=== PATIENT | female | born 1990 | race Two or more races ===

== ENCOUNTER 2025-07-28 11:17 | Emergency (ER) | payer BC, OTHER ==
[~2025-07-28] VITALS: Ht 162.6 cm; Wt 86.2 kg
[2025-07-28 11:29] VITALS: TEMP 98.1
[2025-07-28] MEDS: IV NS 0.9% 1,000 ML BAG IV ONE (11:30)
[2025-07-28] MEDS ORDERED: FAMOTIDINE/PF INJ 20 MG/2 ML VIAL IV ONE (11:42)
[2025-07-28] MEDS ORDERED: MAG HYDROX/AL HYDROX/SIMETH 30 ML UDC ONE (11:42)
[2025-07-28] MEDS ORDERED: LIDOCAINE VISCOUS 2% UD 15 ML UDC ONE (11:42)
[2025-07-28] MEDS ORDERED: ONDANSETRON HCL/PF 4 MG/2 ML VIAL ONE (11:42)
[2025-07-28] MEDS: ONDANSETRON HCL/PF 4 MG/2 ML VIAL IVP ONE (11:45)
[2025-07-28] MEDS: FAMOTIDINE/PF INJ 20 MG/2 ML VIAL IV ONE (11:45)
[2025-07-28] MEDS: LIDOCAINE VISCOUS 2% UD 15 ML UDC MM ONE (11:45)
[2025-07-28] MEDS: MAG HYDROX/AL HYDROX/SIMETH 30 ML UDC PO ONE (11:45)
[2025-07-28 12:05] LABS: PLATELET COUNT (AUTO) 245 K/uL (150-450); RED BLOOD CELL COUNT(AUTO) 4.68 MIL/uL (4.0-5.2); RED CELL DISTRIBUTION WIDTH 14.7 % (11.5-15.0); WHITE BLOOD COUNT (AUTO) 4.8 K/uL (4.3-11.0)
[2025-07-28 12:16] LABS: CALCIUM, SERUM 8.6 mg/dL (8.5-10.1); CREATININE 0.6 mg/dL (0.6-1.3); SODIUM SERUM 144.0 mmol/L (136-145); UREA NITROGEN, BLOOD 13.0 mg/dL (7-18)
[2025-07-28 12:30] LABS: ASPARTATE AMINOTRANSFERASE 39.0 U/L (15-37); TOTAL PROTEIN, SERUM 7.1 g/dL (6.4-8.2)
[2025-07-28] MEDS ORDERED: FAMO-131 PO (12:52)
[2025-07-28] MEDS ORDERED: ONDA4TAB5 PO (12:52)
[2025-07-28] MEDS ORDERED: MORPHINE SULFATE INJ 4 MG/ML DISP.SYRIN ONE (12:54)
[2025-07-28] MEDS: MORPHINE SULFATE INJ 2 MG/ML DISP.SYRIN IV ONE (12:57)
[2025-07-28 13:17] LABS: APPEARANCE,URINE CLEAR (CLEAR); BLOOD, URINE TRACE-INTA Ery/uL (NEGATIVE); LEUKOCYTE ESTERASE ,URINE NEGATIVE (NEGATIVE); NITRITE, URINE NEGATIVE (NEGATIVE); UGLUCOSE NEGATIVE (NEGATIVE)
[2025-07-28 13:20] LABS: ADD URINE CULTURE NO; PREGNANCY TEST URINE QUAL NEGATIVE (NEGATIVE); SQUAMOUS EPITHELIAL CELL,UR Few /HPF (None Seen)
[2025-07-28 13:44] VITALS: BP 121/79; O2SAT 98
== END 2025-07-28 13:45 | disposition home or self-care (01) ==
LOC: ER 11:25
DX: R10.13 Epigastric pain (principal); Z90.49 Acquired absence of other specified parts of digestive tract
CPT/HCPCS: 99284; 96374; 96375; 71045; 96361; 85025; 80048; 83690; 80076; 84703; 81001; 36415; J2270; J1308; J2405; J7030